=== PATIENT | female | born 1975 | race African-American/Black ===

== ENCOUNTER 2020-10-16 20:29 | Emergency (ER) | payer OTHER ==
[~2020-10-16] VITALS: Ht 162.6 cm; Wt 79.4 kg
[2020-10-16] MEDS ORDERED: EFEXOR (20:56)
[2020-10-16] MEDS ORDERED: XANAX XR0.5 MG (20:57)
== END 2020-10-17 00:11 | disposition home or self-care (01) ==
LOC: ER 20:29
DX: R07.89 Other chest pain (principal); R06.02 Shortness of breath; M25.512 Pain in left shoulder; Z03.818 Encounter for observation for suspected exposure to other biological agents ruled out
CPT/HCPCS: 71260; 82803; 93005; Q9965